=== PATIENT | male | born 1975 | race Caucasian/White ===

== ENCOUNTER 2017-01-17 15:13 | Emergency (ER) | payer OTHER ==
[~2017-01-17] VITALS: Ht 190.5 cm; Wt 107.7 kg
[~2017-01-17 15:13] MED LIST: FLEXERIL10 MG PO; FLEXERIL5 MG PO; NAPROSYN500 MG PO; NORCO 5/3251 TABLET PO; PERCOCET 5/31 TABLET PO; PREDNISONE10 MG PO; VALIUM5 MG PO
[2017-01-17 16:26] LABS: MCH 31.1 PG (29.0-34.0); MCHC 34.1 G/DL (30.0-36.0); MCV 91.1 FL (86-99); MEAN PLAT.VOLUME 9.7 uM^3 (9.0-12.4); PLATELET COUNT 254 K/uL (156-360); RBC DIS.WIDTH-CV 12.4 % (11.8-14.6); RBC DIS.WIDTH-SD 41.1 % (39-53); RED BLOOD COUNT 4.83 M/uL (4.00-5.50); WHITE BLOOD COUNT 8.5 K/uL (4.1-10.2)
[2017-01-17 16:50] LABS: CHLORIDE 105 mEq/L (99-109); POTASSIUM 4.3 mEq/L (3.7-5.4); SODIUM 142 mEq/L (136-147)
[2017-01-17 16:52] LABS: GLUCOSE 88 mg/dL (70-99)
[2017-01-17 16:53] LABS: ANION GAP 10 MEQ/L (2-14)
[2017-01-17 16:55] LABS: GFR ESTIMATE (CALCULATED) > 59 mL/min/
[2017-01-17 16:56] LABS: UREA NITROGEN (BUN) 9 mg/dL (9-23)
[2017-01-17 17:06] LABS: TROP-I INTERPRETATION NEGATIVE; TROPONIN-I < 0.01 ng/mL (0.0-0.30)
[2017-01-17 17:45] LABS: D-DIMER ELISA < 150.00 ng/mLDDU (<230)
[2017-01-17 18:04] LABS: TROP-I INTERPRETATION NEGATIVE; TROPONIN-I < 0.01 ng/mL (0.0-0.30)
[2017-01-17 19:43] VITALS: BP 148/93
== END 2017-01-17 19:45 | disposition left against medical advice (07) ==
LOC: EME 15:13
PROVIDERS: Emergency Medicine
DX: R07.89 Other chest pain (principal); F17.200 Nicotine dependence, unspecified, uncomplicated
CPT/HCPCS: 71020; 80048; 84484; 85027; 85379; 93005; 99281; 99285; J2405; J7030